=== PATIENT | male | born 1995 | race Asian ===

== ENCOUNTER 2016-07-09 02:54 | Emergency (ER) | payer SELFPAY ==
[~2016-07-09] VITALS: Ht 175.3 cm; Wt 68.0 kg
[2016-07-09 02:59] VITALS: BP 128/82
[2016-07-09] MEDS ORDERED: NKM (02:59)
--- NOTE | 2016-07-09 03:11 | Emergency Room Report ---
History of Present Illness General Chief Complaint: Alcohol Intoxication Source: Patient Present Illness HPI Is a 20-year-old male who presents with alcohol intoxication. He's been drinking tonight. He actually called an [employer] to take him home. When they get to his apartment complex he was too intoxicated to get out of the back of the car. There was no trauma. The assembly line driver called 911. He did not have his cheek to get into the apartment complex. There was nobody else to let him in. So they brought him here. Patient has no other complaint. No trauma. Allergies: Coded Allergies: No Known Allergies (Unverified , 07/09/16) Patient History Past Medical History: see triage record, old chart reviewed Past Surgical History: none Pertinent Family History: none Social History: Reports: alcohol use Immunizations: other Reviewed Nursing Documentation: PMH: Agreed, PSxH: Agreed Nursing Documentation-PM Past Medical History: No Stated History Review of Systems Eye: Denies: blurred vision, eye pain ENT: Denies: ear pain, nose congestion, throat swelling Respiratory: Denies: cough, shortness of breath Cardiovascular: Denies: chest pain, palpitations Gastrointestinal: Denies: abdominal pain, diarrhea, nausea, vomiting Musculoskeletal: Denies: back pain, joint pain Skin: Denies: rash Neurological: Denies: headache, numbness Endocrine: Denies: increased thirst, increased urine Hematologic/Lymphatic: Denies: easy bruising All Other Systems: negative except mentioned in HPI Physical Exam Vital Signs Date Time Temp Pulse Resp B/P Pulse Ox O2 Delivery O2 Flow Rate FiO2 07/09/16 02:56 98.1 83 16 128/82 97 Room Air vitals normal Sp02 EP Interpretation: reviewed, normal General Appearance: well appearing, no apparent distress, other - Intoxicated Head: normocephalic, atraumatic Eyes: bilateral eye EOMI, bilateral eye PERRL ENT: hearing grossly normal, normal pharynx Neck: full range of motion, supple, no meningismus Respiratory: chest non-tender, lungs clear, normal breath sounds Cardiovascular #1: regular rate, rhythm, no murmur Gastrointestinal: normal bowel sounds, non tender, no mass, no organomegaly, no bruit, non-distended Musculoskeletal: back normal, normal range of motion Psychiatric: mood/affect normal Skin: warm/dry Medical Decision Making Diagnostic Impression: Primary Impression: Acute alcoholic intoxication Qualified Codes: F10.120 - Alcohol abuse with intoxication, uncomplicated ER Course Patient with acute alcohol intoxication. No evidence of any trauma. I see no need for CT scan or x-ray. We'll load him sleep and sober up some. We'll discharge in the morning. Last Vital Signs Date Time Temp Pulse Resp B/P Pulse Ox O2 Delivery O2 Flow Rate FiO2 07/09/16 02:59 98.1 83 16 128/82 97 Room Air Status: improved Disposition: HOME, SELF-CARE Condition: Stable Patient Instructions: Alcohol Intoxication, [id number] Additional Instructions: Abstain from drinking to excess. Followup with your doctor as needed in 7 days. Return if worse. ISELA CORTES M.D. July 09, 2016 03:11
[2016-07-09 04:59] VITALS: BP 118/74
[2016-07-09 06:11] VITALS: BP 124/73
== END 2016-07-09 06:15 | disposition home or self-care (01) ==
LOC: EDBD 02:54 → EMR 03:19
DX: F10.129 Alcohol abuse with intoxication, unspecified (principal)
CPT/HCPCS: 99284